=== PATIENT | female | born 1975 | race Two or more races ===

== ENCOUNTER 2018-10-22 18:10 | Emergency (ER) | payer OTHER ==
[~2018-10-22] VITALS: Ht 162.6 cm; Wt 75.0 kg
[2018-10-22 21:42] VITALS: BP 124/79
== END 2018-10-22 21:44 | disposition home or self-care (01) ==
LOC: ED 21:39
DX: L02.211 Cutaneous abscess of abdominal wall (principal); N39.0 Urinary tract infection, site not specified; R00.0 Tachycardia, unspecified; T50.905A Adverse effect of unspecified drugs, medicaments and biological substances, initial encounter; Y92.9 Unspecified place or not applicable
CPT/HCPCS: 10060; 36415; 71045; 80053; 81001; 84484; 85025; 85379; 87086; 93005; 96372; 99284; J0696